=== PATIENT | male | born 1960 | race Caucasian/White ===

== ENCOUNTER 2023-07-13 02:58 | Emergency (ER) | payer OTHER ==
[~2023-07-13] VITALS: Ht 177.8 cm; Wt 84.8 kg
[2023-07-13 02:59] VITALS: BP_SYST 159; PULSE 106; RESP 20; TEMP 98.6; O2SAT 95
== END 2023-07-13 03:20 ==
LOC: SED 02:58
DX: Z02.89 Encounter for other administrative examinations (principal); Z53.21 Procedure and treatment not carried out due to patient leaving prior to being seen by health care provider
CPT/HCPCS: 36415; 99283